=== PATIENT | male | born 1985 | race Caucasian/White ===

== ENCOUNTER 2016-10-18 02:48 | Emergency (ER) | payer MEDICAID ==
[2016-10-18 05:37] LABS: Hematocrit 42 % (42-52); Hemoglobin 14.5 g/dl (14.0-18.0); Mean Corpuscular HGB Conc 34 g/dl (31-36); Mean Corpuscular Hemoglobin 30 pg (27-31); Mean Corpuscular Volume 86 fL (80-94); Mean Platelet Volume 9 um3 (7.4-10.4); Red Blood Count 4.88 10^6/ul (4.0-5.4); Red Cell Distribution Width 13 % (10.5-15); White Blood Count 6.4 10^3/ul (3.5-10.8)
[2016-10-18 05:56] LABS: Albumin 4.9 g/dL (3.2-5.2); BUN/Creatinine Ratio 12.9 (8-20); Calcium 9.6 mg/dL (8.6-10.3); EGFR African American 123.5 (>60); EGFR Non-African American 96.1 (>60); Globulin 2.7 g/dL (2-4); Total Bilirubin 0.6 mg/dL (0.2-1.0); Total Protein 7.6 g/dL (6.4-8.9)
[2016-10-18 06:15] LABS: TSH (Thyroid Stimulating Horm) 2.86 mcIU/mL (0.34-5.60)
[2016-10-18 06:22] LABS: Free T4 1.03 ng/dL (0.61-1.12)
--- NOTE | 2016-10-18 06:53 | ED ---
Isa Arizmendi Janilya, scribed for Randal Holder MD on 10/18/16 at 0533 . Shortness of Breath - HPI Summary HPI Summary: A 31 y/o male came in [place] [facility] [place] w/ a gradual onset of intermittent SOB. Pt states he had SOB last week that spontaneously resolved. He started taking B12 supplements on Saturday, October 13, 2016. On Sunday, October 152016, he started having SOB once again. He also reports left eye twitching as well as tremors. Pt states he is anxious and feels unbalanced. Pt denies coughing, edema, CP, fever, chills, dysuria, hematuria, n/v/d. Last January, he had similar Sx. And he was diagnosed with panic attacks. Girlfriend states he fixates on the uneven floors in the apt - History of Current Complaint Chief Complaint: EDShortnessOfBreath Time Seen by Provider: 10/18/16 04:30 Hx Obtained From: Patient Onset/Duration: Gradual Onset, Lasting Days, Still Present Timing: Constant Current Severity: Moderate Dyspnea At: Rest Aggrevating Factors: Nothing Alleviating Factors: Nothing Associated Signs & Symptoms: Negative - Allergy/Home Medications Allergies/Adverse Reactions: Allergies Allergy/AdvReac Type Severity Reaction Status Date / Time Penicillins [PCN] Allergy Unknown Verified 10/18/16 02:52 Reaction Details PMH/Surg Hx/FS Hx/Imm Hx Previously Healthy: Yes Infectious Disease History: No Infectious Disease History: Denies: Traveled Outside the [place] in Last 30 Days - Family History Known Family History: Negative: Cardiac Disease - Social History Occupation: Student Lives: With Family - girlfriend Review of Systems Constitutional: Other - tremors Negative: Fever, Chills Positive: Other - left eye twitching. Negative: Erythema Negative: Sore Throat Negative: Chest Pain Positive: Shortness Of Breath. Negative: Cough Negative: Abdominal Pain, Vomiting, Nausea Negative: dysuria, hematuria Negative: Rash Neurological: Negative - pt denies dizziness All Other Systems Reviewed And Are Negative: Yes Physical Exam - Summary Physical Exam Summary: Constitutional: Well-developed, Well-nourished, Alert. (-) Distressed Skin: Warm, Dry HENT: Normocephalic; Atraumatic Eyes: Conjunctiva normal Neck: Musculoskeletal ROM normal neck. (-) JVD, (-) Stridor, (-) Tracheal deviation Cardio: Rhythm regular, rate normal, Heart sounds normal; Intact distal pulses; The pedal pulses are 2+ and symmetric. Radial pulses are 2+ and symmetric. (-) Murmur Pulmonary/Chest wall: Effort normal. (-) Respiratory distress, (-) Wheezes, (-) Rales Abd: Soft, (-) Tenderness, (-) Distension, (-) Guarding, (-) Rebound Musculoskeletal: (-) Edema Lymph: (-) Cervical adenopathy Neuro: Alert, Oriented x3 Psych: Mood and affect Normal Triage Information Reviewed: Yes Vital Signs On Initial Exam: Initial Vitals Temp Pulse Resp BP Pulse Ox 98.9 F 83 20 139/81 100 10/18/16 02:53 10/18/16 02:53 10/18/16 02:53 10/18/16 02:53 10/18/16 02:53 Vital Signs Reviewed: Yes Diagnostics - Vital Signs Vital Signs Temp Pulse Resp BP Pulse Ox 10/18/16 02:53 98.9 F 83 20 139/81 100 - Laboratory Lab Results: Lab Results 10/18/16 10/18/16 Range/Units 05:24 05:24 WBC 6.4 (3.5-10.8) 10^3/ul RBC 4.88 (4.0-5.4) 10^6/ul Hgb 14.5 (14.0-18.0) g/dl Hct 42 (42-52) % MCV 86 (80-94) fL MCH 30 (27-31) pg MCHC 34 (31-36) g/dl RDW 13 (10.5-15) % Plt Count 175 (150-450) 10^3/ul MPV 9 (7.4-10.4) um3 Neut % (Auto) 74.0 (38-83) % Lymph % (Auto) 20.3 L (25-47) % Toombs % (Auto) 4.4 (1-9) % Eos % (Auto) 0.8 (0-6) % Baso % (Auto) 0.5 (0-2) % Absolute Neuts (auto) 4.7 (1.5-7.7) 10^3/ul Absolute Lymphs (auto) 1.3 (1.0-4.8) 10^3/ul Absolute Monos (auto) 0.3 (0-0.8) 10^3/ul Absolute Eos (auto) 0 (0-0.6) 10^3/ul Absolute Basos (auto) 0 (0-0.2) 10^3/ul Absolute Nucleated RBC 0.01 10^3/ul Nucleated RBC % 0.1 Sodium 136 (133-145) mmol/L Potassium 4.0 (3.5-5.0) mmol/L Chloride 103 (101-111) mmol/L Carbon Dioxide 27 (22-32) mmol/L Anion Gap 6 (2-11) mmol/L BUN 12 (6-24) mg/dL Creatinine 0.93 (0.67-1.17) mg/dL Est GFR ( Amer) 123.5 (>60) Est GFR (Non-Af Amer) 96.1 (>60) BUN/Creatinine Ratio 12.9 (8-20) Glucose 108 H (70-100) mg/dL Calcium 9.6 (8.6-10.3) mg/dL Total Bilirubin 0.60 (0.2-1.0) mg/dL AST 17 (13-39) U/L ALT 15 (7-52) U/L Alkaline Phosphatase 62 (34-104) U/L Total Protein 7.6 (6.4-8.9) g/dL Albumin 4.9 (3.2-5.2) g/dL Globulin 2.7 (2-4) g/dL Albumin/Globulin Ratio 1.8 (1-3) TSH 2.86 (0.34-5.60) mcIU/mL Free T4 1.03 (0.61-1.12) ng/dL Result Diagrams: 10/18/16 05:24 10/18/16 05:24 Lab Statement: Any lab studies that have been ordered have been reviewed, and results considered in the medical decision making process. - Radiology CXR Xray Interpretation: No Acute Changes - IMPRESSION: No acute disease Radiology Interpretation Completed By: ED Physician - Dr. Holder - EKG 0636 Cardiac Rate: NL - 62 bpm EKG Rhythm: Sinus Rhythm ST Segment: Normal Ectopy: None Re-Evaluation - Re-Evaluation First Eval Re-Evaluation Time: 06:50 Change: Improved - steady gait, unlabored breathing Course/Dx - Course Assessment/Plan: Sx suspected to be related to anxiety/panic attacks, stress response to job applications/uncertainty of future jobs/moving - Diagnoses Provider Diagnoses: Anxiety Discharge - Discharge Plan Condition: Good Disposition: HOME Patient Education Materials: Anxiety (ED) Referrals: [facility] [place] [facility] [Outside] - 2 Days The documentation as recorded by the Isa simon Janilya accurately reflects the service I personally performed and the decisions made by , Randal Holder MD.
[2016-10-18 07:37] VITALS: BP 122/67
--- NOTE | 2016-10-18 08:08 | RAD ---
HISTORY: Shortness of breath COMPARISONS: None VIEWS:1: Single frontal portable view of the chest at 5:15 AM FINDINGS: LINES AND TUBES: None. CARDIOMEDIASTINAL SILHOUETTE: The cardiomediastinal silhouette is normal for portable technique. PLEURA: The costophrenic angles are sharp. No pleural abnormalities are noted. LUNG PARENCHYMA: There is hyperinflation. ABDOMEN: The upper abdomen is clear. There is no subphrenic gas. BONES AND SOFT TISSUES: No bone or soft tissue abnormalities are noted. IMPRESSION: HYPERINFLATION. NO ACTIVE CARDIOPULMONARY DISEASE.
== END 2016-10-18 07:37 | disposition home or self-care (01) ==
LOC: ED 02:48
DX: F41.9 Anxiety disorder, unspecified (principal); Z88.0 Allergy status to penicillin
CPT/HCPCS: 36415; 71010; 80053; 84439; 84443; 85025; 93005; 99282